=== PATIENT | male | born 1960 | race Caucasian/White ===

== ENCOUNTER 2016-06-16 17:17 | Emergency (ER) | payer MEDICARE, OTHER | END 2016-06-16 19:41 | disposition home or self-care (01) | LOC: ER 17:17 | DX: K04.7 Periapical abscess without sinus (principal); F17.210 Nicotine dependence, cigarettes, uncomplicated; Z79.02 Long term (current) use of antithrombotics/antiplatelets; Z79.82 Long term (current) use of aspirin; Z79.899 Other long term (current) drug therapy; Z88.5 Allergy status to narcotic agent | CPT/HCPCS: 99282; 99283 ==

== ENCOUNTER 2016-07-03 21:40 | Observation (INO) | payer MEDICARE, OTHER ==
[~2016-07-03] VITALS: Ht 170.2 cm; Wt 80.0 kg
[2016-07-03 22:15] LABS: BASO # 0.1 10_X3_uL (0.0-0.1); BASO % 0.8 % (0.2-1.2); EOS # 0.7 10_X3_uL (0.0-0.5); EOS % 4.6 % (0.8-7.0); GRAN # 8.1 10_X3_uL (1.8-5.4); GRAN % 57.2 % (34.0-67.9); HEMATOCRIT 38.8 % (40-51); HEMOGLOBIN 13.7 g/dL (13.7-17.5); LYMPH # 4.8 10_X3_uL (1.3-3.6); LYMPH % 33.9 % (21.8-53.1); MEAN CORPUSCULAR HEMOGLOBIN 30.9 pg (27.0-33.0); MEAN CORPUSCULAR HGB CONC 35.3 g/dL (32.0-36.0); MEAN CORPUSCULAR VOLUME 87.4 fL (79-92); MEAN PLATELET VOLUME 9.8 fl (7.5-11.5); MONO # 0.5 10_X3_uL (0.3-0.8); MONO % 3.5 % (5.3-12.2); PLATELET COUNT 343 x10_3/uL (163-337); RED BLOOD COUNT 4.44 x10_6/uL (4.6-6.1); RED CELL DISTRIBUTION WIDTH 13.4 % (11.6-14.4); WHITE BLOOD COUNT 14.1 x10_3/uL (4.2-9.1)
[2016-07-03 22:24] LABS: ALBUMIN 4.3 gm/dL (3.4-5.0); ALKALINE PHOSPHATASE 75 U/L (50-136); ALT/SGPT 15 U/L (7.53-40.17); AST/SGOT 19 U/L (6.66-35.34); BILIRUBIN,TOTAL 0.33 mg/dL (0.0-1.0); BLOOD UREA NITROGEN 9 mg/dL (7-18); CALCIUM 8.7 mg/dL (8.7-10.7); CARBON DIOXIDE 18 mmol/L (21-32); CREATINE KINASE 143 U/L (35-232); CREATININE 0.7 mg/dL (0.6-1.3); ETHYL ALCOHOL 168 mg/dl; GLUCOSE,RANDOM 157 mg/dL (70-99); POTASSIUM 3.1 mmol/L (3.5-5.1); SODIUM 133 mmol/L (136-145); TOTAL PROTEIN 6.8 gm/dL (6.4-8.2)
[2016-07-04 02:32] LABS: INR 0.9 (0.9-1.1); PARTIAL THROMBOPLASTIN TIME 23.8 SECONDS (21.3-29.3); PROTHROMBIN TIME (PATIENT) 9.9 SECONDS (9.9-11.1)
[2016-07-04 04:09] LABS: CKMB 1.4 ng/ml (0.0-5.0)
[2016-07-04 04:10] LABS: TROP-I < 0.30 NG/ML (0.00-0.30)
[2016-07-04 10:42] LABS: CKMB 1.4 ng/ml (0.0-5.0)
[2016-07-04 10:50] LABS: TROP-I < 0.30 NG/ML (0.00-0.30)
== END 2016-07-04 10:40 | disposition home or self-care (01) ==
LOC: ER 21:40 → MS 23:59 → ER 07-04 01:06 → MS 07-04 01:06
PROVIDERS: Emergency Medicine; ADMIT Family Medicine
DX: R07.89 Other chest pain (principal); I10 Essential (primary) hypertension; J44.9 Chronic obstructive pulmonary disease, unspecified; I25.10 Atherosclerotic heart disease of native coronary artery without angina pectoris; Z95.5 Presence of coronary angioplasty implant and graft; F17.210 Nicotine dependence, cigarettes, uncomplicated; Z79.82 Long term (current) use of aspirin; Z79.02 Long term (current) use of antithrombotics/antiplatelets; Z79.899 Other long term (current) drug therapy
CPT/HCPCS: 36415; 71010; 80053; 80061; 82550; 82553; 82962; 84132; 85025; 85610; 85730; 93005; 93041; 96360; 96361; 99070; 99284; 99285-25; G0378; G0480

== ENCOUNTER 2016-07-11 14:11 | Emergency (ER) | payer MEDICARE, OTHER | END 2016-07-11 14:52 | disposition home or self-care (01) | LOC: ER 14:11 | DX: J40 Bronchitis, not specified as acute or chronic (principal); K02.9 Dental caries, unspecified; R05 Cough; F17.210 Nicotine dependence, cigarettes, uncomplicated | CPT/HCPCS: 99282; 99283 ==

== ENCOUNTER 2016-09-13 14:39 | Emergency (ER) | payer MEDICARE, OTHER | END 2016-09-13 15:35 | disposition home or self-care (01) | LOC: ER 14:39 | DX: M54.5 Low back pain (principal); G89.29 Other chronic pain; I10 Essential (primary) hypertension; J44.9 Chronic obstructive pulmonary disease, unspecified; Z95.5 Presence of coronary angioplasty implant and graft; F17.210 Nicotine dependence, cigarettes, uncomplicated; Z79.899 Other long term (current) drug therapy; Z79.02 Long term (current) use of antithrombotics/antiplatelets; Z79.82 Long term (current) use of aspirin | CPT/HCPCS: 96372; 99282-25 ==